=== PATIENT | female | born 1970 | race Caucasian/White ===

== ENCOUNTER 2016-07-21 23:59 | Emergency (ER) | payer OTHER ==
[~2016-07-21] VITALS: Ht 160 cm; Wt 104.3 kg
[2016-07-22] MEDS ORDERED: LISINOPRIL10 M1 PO (00:30)
[2016-07-22] MEDS ORDERED: SERTRALINE HCL100 MG PO (00:31)
[2016-07-22] MEDS ORDERED: AUGMENTIN 875-1 EACH PO (03:41)
--- NOTE | 2016-07-22 03:42 | ED HEAD/FACIAL INJ COMPLAINT ---
History of Present Illness General Chief Complaint: Animal/Insect Bite Stated Complaint: DOG BITE (UPPER LIP) Source: patient, family, old records Exam Limitations: no limitations Vital Signs & Intake/Output Vital Signs & Intake/Output Vital Signs Date Time Temp Pulse Resp B/P Pulse O2 O2 Flow FiO2 Ox Delivery Rate 07/22 0357 98.1 83 18 129/86 97 Room Air 07/22 0025 98.1 84 16 136/89 97 Room Air Allergies Coded Allergies: iodine (Mild, HIVES 07/22/16) Reconcile Medications Amoxicillin/Potassium Clav (Augmentin 875-125 Tablet) 875 MG-125 MG TABLET 1 TAB PO BID dog bite Lisinopril 10 MG TABLET 1 TAB PO DAILY HTN (Reported) Sertraline HCl 100 MG TABLET 1 TAB PO DAILY ANXIETY (Reported) Triage Note: 46YO FEMALE TO TRIAGE W/CO DOG BITE TO UPPER LIP TONITE BY HER FRIENDS DOG. PT STATES THE DOG'S SHOTS ARE ALL UP TO DATE. Triage Nurses Notes Reviewed? yes Onset: Just prior to arrival Severity: moderate Location: upper lip Method of Injury: dog bite Loss of Consciousness: no loss of consciousness LMP (ages 10-50): unknown : No Patient currently breastfeeds: No HPI: Prior to admission patient was bitten in the upper lip by a friend's bulldog sustaining 2 avulsion lacerations to the vermilion border. She denies other injury fever chills nausea vomiting diarrhea abdominal pain chest pain shortness breath headache dysuria rash. The dog is up-to-date with its shots. Past History Travel History Traveled to [place] past 21 day No Medical History Any Pertinent Medical History? see below for history Cardiovascular: hypertension Gastrointestinal: GERD Psychiatric: anxiety Surgical History Surgical History: non-contributory Psychosocial History What is your primary language Bhutanese Tobacco Use: Quit >30 days ago Family History Hx Contributory? No Review of Systems Review of Systems Constitutional: Reports: no symptoms. EENTM: Reports: no symptoms. Respiratory: Reports: no symptoms. Cardiovascular: Reports: no symptoms. GI: Reports: no symptoms. Genitourinary: Reports: no symptoms. Musculoskeletal: Reports: no symptoms. Skin: Reports: see HPI. Neurological/Psychological: Reports: no symptoms. Hematologic/Endocrine: Reports: no symptoms. Immunologic/Allergic: Reports: no symptoms. All Other Systems: Reviewed and Negative Physical Exam Physical Exam General Appearance: well developed/nourished, mild distress Head: active bleeding, evidence of injury Eyes: Bilateral: PERRL, EOMI. Ears, Nose, Throat: normal pharynx, normal ENT inspection, hearing grossly normal, moist mucus membranes Neck: normal inspection, supple, full range of motion, no midline tenderness Respiratory: normal breath sounds Cardiovascular: regular rate/rhythm Gastrointestinal: soft, non-tender Back: normal inspection Extremities: normal inspection, normal range of motion, no edema Psychiatric: awake, alert, oriented x 3 Cranial Nerves: normal hearing, normal speech, PERRL Coordination/Gait: normal finger to nose, normal gait Motor/Sensory: no motor/sensory deficits Reflexes: 2+: bicep (R), bicep (L). Skin: intact, normal color, warm/dry Lymphatic: no anterior cervical leonidas Progress Differential Diagnosis: upper lip laceration dog bite Plan of Care: Current Medications Sig/Imer Start time Last Medication Dose Stop Time Status Admin Amoxicillin/ 500 MG ONCE ONE 07/22 344 UNVr Clavulanate Potassium 07/22 345 (Augmentin) Departure Departure Time of Disposition: 338 Disposition: HOME OR SELF CARE Condition: Stable Clinical Impression Primary Impression: Laceration of upper lip, complicated Qualifiers: Encounter type: initial encounter Qualified Code: S01.511A - Laceration without foreign body of lip, initial encounter Secondary Impressions: Dog bite of mouth Qualifiers: Encounter type: initial encounter Qualified Codes: S01.552A - Open bite of oral cavity, initial encounter; W54.0XXA - Bitten by dog, initial encounter Referrals: BOUBACAR GARDNER,STEFFANY Thomas (PCP/Family) Additional Instructions: Suture removal 1 week Departure Forms: Customer Survey General Discharge Information Prescriptions: Current Visit Scripts Amoxicillin/Potassium Clav (Augmentin 875-125 Tablet) 1 TAB PO BID #14 TAB Procedures Laceration/Wound Repair Laceration/Wound Repair: Wound Location: face (upper lip) Wound's Depth, Shape: contused tissue, irregular, other (susi border x 2) Wound Length (cm): 4 (total) Wound Explored: no foreign body removed, irrigated extensively Irrigated w/ Saline (ccs): 250 Betadine Prep? No Anesthesia: 1% lidocaine Volume Anesthetic (ccs): 4 Wound Repaired With: sutures Suture Size/Type: 6:0, nylon, 6:0 chromic Number of Sutures: 8 Layer Closure? No Sterile Dressing Applied: No Splint Applied? No Sling Applied? No Tetanus Status: up to date
[2016-07-22 03:57] VITALS: BP 129/86
== END 2016-07-22 03:48 ==
LOC: ERH 23:59
DX: S01.511A Laceration without foreign body of lip, initial encounter (principal); W54.0XXA Bitten by dog, initial encounter; Y92.9 Unspecified place or not applicable; Y93.9 Activity, unspecified
CPT/HCPCS: J3490

== ENCOUNTER 2016-07-28 15:43 | Emergency (ER) | payer OTHER ==
[~2016-07-28] VITALS: Ht 160 cm; Wt 108.9 kg
[~2016-07-28 15:43] MED LIST: AUGMENTIN 875-1 EACH PO; LISINOPRIL10 M1 PO; SERTRALINE HCL100 MG PO
[2016-07-28 15:45] VITALS: BP 126/86
--- NOTE | 2016-07-28 15:59 | ED ANIMAL BITE/WOUND CHECK ---
History of Present Illness General Chief Complaint: Suture Removal/Wound Recheck Stated Complaint: SUTURE REMOVAL (UPPER LIP) Source: patient Exam Limitations: no limitations Vital Signs & Intake/Output Vital Signs & Intake/Output Vital Signs Date Time Temp Pulse Resp B/P B/P Pulse O2 O2 Flow FiO2 Mean Ox Delivery Rate 07/28 1546 98 07/28 1545 97.6 92 16 126/86 98 Room Air Allergies Coded Allergies: iodine (Mild, HIVES 07/22/16) Reconcile Medications Amoxicillin/Potassium Clav (Augmentin 875-125 Tablet) 875 MG-125 MG TABLET 1 TAB PO BID dog bite Lisinopril 10 MG TABLET 1 TAB PO DAILY HTN (Reported) Sertraline HCl 100 MG TABLET 1 TAB PO DAILY ANXIETY (Reported) Triage Note: PT HERE FOR SUTURE REMOVAL UPPER LIP THAT WHERE PLACED ON MONDAY. Triage Nurses Notes Reviewed? yes Onset: Abrupt Duration: day(s):, constant, continues in ED Timing: recent history Injury Environment: home No Modifying Factors: none HPI: 46-year-old female comes into the emergency room for further evaluation of suture removal. She was bitten by dog. Patient had sutures placed. Patient on Augmentin. Denies any redness swelling discharge. Denies any other associated symptoms. Past History Travel History Traveled to [place] past 21 day No Medical History Any Pertinent Medical History? see below for history Cardiovascular: hypertension Gastrointestinal: GERD Psychiatric: anxiety Surgical History Surgical History: non-contributory Psychosocial History What is your primary language Sudanese Tobacco Use: Never used ETOH Use: occasional use Illicit Drug Use: denies illicit drug use Family History Hx Contributory? No Review of Systems Review of Systems Constitutional: Reports: no symptoms. EENTM: Reports: see HPI. Respiratory: Reports: no symptoms. Cardiovascular: Reports: no symptoms. GI: Reports: no symptoms. Genitourinary: Reports: no symptoms. Musculoskeletal: Reports: no symptoms. Skin: Reports: no symptoms. Neurological/Psychological: Reports: no symptoms. Hematologic/Endocrine: Reports: no symptoms. Immunologic/Allergic: Reports: no symptoms. All Other Systems: Reviewed and Negative Physical Exam Physical Exam General Appearance: well developed/nourished Head: atraumatic Eyes: Bilateral: normal appearance. Ears, Nose, Throat: normal ENT inspection, hearing grossly normal Neck: normal inspection Respiratory: normal breath sounds, no respiratory distress Cardiovascular: regular rate/rhythm Back: normal inspection Extremities: normal range of motion Neurologic/Psych: awake, alert, oriented x 3, normal mood/affect Skin: intact, normal color, warm/dry Lymphatic: no anterior cervical leonidas Progress Differential Diagnosis: abscess, cellulitis, joint infection, tenosysnovitis Plan of Care: 07/28/2016 4:10:59 PM Nylon sutures removed. 2 absorbable stitches removed. Other absorbable stitches left. They were subcutaneous and buried. No signs of infection. They will work their way to the surface or be broken down naturally. Finish Augmentin. Departure Departure Disposition: HOME OR SELF CARE Condition: Stable Clinical Impression Primary Impression: Visit for suture removal Referrals: BOUBACAR GARDNER,STEFFANY Thomas (PCP/Family) Additional Instructions: Return if any concerns worsening symptoms. Watch for signs of infection such as redness or discharge fever chills. There is still absorbable stitches that will fall out on their own. Please go over all results of today's visit with your primary care doctor. Contact your primary care doctor to let them know you were here in the emergency room. There may be nonspecific findings which may not be related to your visit today here in the emergency room but may require further evaluation and chronic monitoring by your primary care doctor. If you had a laceration today the chance of foreign body always remains. You should follow-up with your primary care doctor for recheck in 3-5 days for a wound check. If you had an x-ray done there is a chance that a fracture could have been missed on initial read and you should follow-up with your primary care doctor for repeat x-rays if symptoms persist. If your blood pressure was elevated here in the emergency room please have rechecked by her primary care doctor within the next 48 hours by your primary care doctor. If you were prescribed a narcotic here in the emergency room or any type of controlled substances you're not allowed to drive while taking this medication or operate any type of heavy machinery. Narcotics can make you feel lightheaded dizziness nausea and can cause constipation. You may need to cone picker a stool softener. Thank you for choosing [facility] emergency room. Please return to the emergency room immediately if you have any other concerns worsening of symptoms. Departure Forms: Customer Survey General Discharge Information
== END 2016-07-28 16:00 ==
LOC: ERH 15:43
DX: S01.511A Laceration without foreign body of lip, initial encounter (principal); W54.0XXA Bitten by dog, initial encounter; Y92.9 Unspecified place or not applicable; Y93.9 Activity, unspecified
CPT/HCPCS: 99281